=== PATIENT | male | born 1990 | race Caucasian/White ===

== ENCOUNTER 2019-01-09 10:50 | Outpatient (CLI) | payer BC ==
--- NOTE | 2019-01-09 12:19 | ULT ---
TESTICULAR ULTRASOUND: INDICATIONS: Scrotal swelling. COMPARISON: None. TECHNIQUE: Bender-scale, color Doppler and spectral Doppler images were obtained of the scrotum. FINDINGS: The right testis measures 4.2 x 2.8 x 1.5 cm. The left testis measures 4.3 x 2.4 x 2.7 cm. There is n ormal flow to both testicles. There is a mild varicocele involving the left testicle. There is a smal l right epididymal head cyst, measuring 4 mm. Small appendix testis is seen adjacent to the right epi didymal head. There are small bilateral hydroceles. IMPRESSION: 1. No intratesticular mass or torsion demonstrated. 2. Right epididymal head cyst. 3. Mild left-sided varicocele. POS: [facility]
== END 2019-01-09 10:51 | disposition home or self-care (01) ==
LOC: BICULT 10:50
PROVIDERS: ATTEND Family Medicine
DX: N50.89 Other specified disorders of the male genital organs (principal); N50.3 Cyst of epididymis; I86.1 Scrotal varices
CPT/HCPCS: 76870; 93976

== ENCOUNTER 2020-07-14 17:26 | Outpatient (CLI) | payer BC ==
[2020-07-14 18:25] LABS: #Eosinphils 0.3 10x3/uL (0.0-0.5); #Monocytes 0.5 10x3/uL (0.0-1.1); #Neutrophils 4.4 10x3/uL (1.5-8.4); %Basophils 0.4 % (0.0-2.0); %Lymphocytes 32.2 % (18.0-47.0); %Monocytes 6.8 % (0.0-10.0); %Neutrophils 56.5 % (40.0-75.0); Hemoglobin 15.3 g/dL (13.5-17.5); Mean Corpuscular HGB CONC 34.2 g/dL (32.0-36.0); Mean Corpuscular Hemoglobin 29.1 pg (27.0-33.0); Mean Corpuscular Volume 85.2 fl (81.2-95.1); Mean Platelet Volume 11.7 fl (7.4-10.4); Platelet Count 188 10x3/uL (150-450); RBC Distribution Width 12.5 % (11.5-14.5); Red Blood Cell (RBC) Count 5.26 10x6/uL (4.32-5.72); White Blood Cell (WBC) Count 7.8 10x3/uL (3.5-10.5)
[2020-07-14 18:31] LABS: Anion Gap 13 mmol/L (10-20); BUN (Urea Nitrogen) 17 mg/dL (8.9-20.6); Calc. Creatinine Clearance 0 mL/min (70-130); Calcium 9.9 mg/dL (7.8-10.44); Carbon Dioxide 30 mmol/L (22-29); Chloride 103 mmol/L (98-107); Glucose 90 mg/dL (70-105); Potassium 3.9 mmol/L (3.5-5.1); Sodium 142 mmol/L (136-145)
[2020-07-15 09:46] LABS: SARS-CoV-2 NAA Rapid Test Not Detected (NotDetected)
== END 2020-07-14 17:27 | disposition home or self-care (01) ==
LOC: LABBT 17:26
PROVIDERS: ATTEND Urology
DX: Z01.812 Encounter for preprocedural laboratory examination (principal); I86.1 Scrotal varices
CPT/HCPCS: 80048; 85025; U0002; U0005

== ENCOUNTER 2020-07-17 06:05 | Day surgery (SDC) | payer BC ==
[2020-07-16 14:10] VITALS: BMI 20.3
[2020-07-17] MEDS ORDERED: Fentanyl 100 MCG/2 ML VIAL ONE (06:18)
[2020-07-17] MEDS ORDERED: EPINEPHrine 1 MG/ML AMP ONE (06:36)
[2020-07-17] MEDS ORDERED: Bupivacaine PF 0.5% 30 ML VIAL ONE (06:36)
[2020-07-17] MEDS ORDERED: Ketorolac Tromethamine 30 MG/ML VIAL ONE (07:43)
[2020-07-17] MEDS ORDERED: PHENYLEPHRINE-NS 100 MCG/ML 10 ML SYRINGE ONE (07:43)
[2020-07-17] MEDS ORDERED: Rocuronium Bromide 10 MG/ML (10ML VIAL) ONE (07:43)
[2020-07-17] MEDS ORDERED: Dexamethasone 20 MG/5 ML VIAL ONE (07:43)
[2020-07-17] MEDS ORDERED: Ondansetron PF 4 MG/2 ML Vial ONE (07:43)
[2020-07-17] MEDS ORDERED: Lidocaine 1% PF 5 ML VIAL ONE (07:43)
[2020-07-17] MEDS ORDERED: PROPOFOL 200 MG/20 ML VIAL ONE (07:43)
[2020-07-17] MEDS ORDERED: Glycopyrrolate 0.2 MG/ML 5 ML SYRINGE ONE (07:43)
== END 2020-07-17 10:33 | disposition home or self-care (01) ==
LOC: SDC 06:05
PROVIDERS: ATTEND Urology
PROC: 0VBG4ZZ Excision of Left Spermatic Cord, Percutaneous Endoscopic Approach (ICD-10-PCS; principal; 2020-07-17)
DX: I86.1 Scrotal varices (principal); Z87.891 Personal history of nicotine dependence
CPT/HCPCS: J0171; J0690; J3010; S0020